=== PATIENT | female | born 2000 | race Asian ===

== ENCOUNTER → 2024-09-28 | Outpatient (CLI) | payer OTHER, SELFPAY ==
[2024-09-28 16:57] LABS: Glucose,1 Hour PP 50gm Dose 125 mg/dL (80-140)
== END | disposition home or self-care (01) ==
LOC: SLDO 15:29
PROVIDERS: Referring Provider Specialist; Visit Provider Specialist
DX: Z34.82 Encounter for supervision of other normal pregnancy, second trimester (principal)
CPT/HCPCS: 36415; 82950

== ENCOUNTER → 2024-10-26 | Outpatient (CLI) | payer OTHER, SELFPAY ==
[2024-10-26 16:35] LABS: Basophils # (Auto) 0.1 Thou/mm3 (0.0-0.2); Basophils % (Auto) 1 % (0-2.5); Eosinophils # (Auto) 0.2 Thou/mm3 (0.0-0.5); Eosinophils % (Auto) 2 % (0-10); Hematocrit 39.3 % (36.0-46.0); Hemoglobin 11.9 g/dL (12.0-16.0); Immature Granulocytes % (Auto) 1 % (0-0); Immature Granulocytes Auto 0.12 Thou/mm3 (0.00-0.00); Lymphocytes # (Auto) 1.6 Thou/mm3 (1.0-4.8); Lymphocytes % (Auto) 14 % (10-50); Mean Corpuscular HGB Conc 30.3 g/dl (31.0-37.0); Mean Corpuscular Hemoglobin 21.6 pg (25.0-35.0); Mean Corpuscular Volume 71 fL (80-100); Monocytes # (Auto) 0.9 Thou/mm3 (0.0-0.8); Monocytes % (Auto) 8 % (0-12); Neutrophils # (Auto) 8.5 Thou/mm3 (1.8-7.7); Neutrophils % (Auto) 75 % (37-80); Nucleated Red Blood Cell % 0 /100 WBC (0); Platelet Count 372 Thou/mm3 (140-440); RDW Standard Deviation 38.3 fL (36.4-46.3); Red Blood Count 5.51 Miln/mm3 (4.00-5.20); Syphilis Nonreactive (Nonreactive); White Blood Count 11.3 Thou/mm3 (3.6-11.0)
== END | disposition home or self-care (01) ==
LOC: SLDO 14:05
PROVIDERS: Referring Provider Specialist; Visit Provider Specialist
DX: O23.40 Unspecified infection of urinary tract in pregnancy, unspecified trimester (principal); Z3A.00 Weeks of gestation of pregnancy not specified
CPT/HCPCS: 36415; 85025; 86780; 87086

== ENCOUNTER → 2024-12-07 | Outpatient (CLI) | payer OTHER, SELFPAY ==
[2024-12-08 14:18] LABS: BVAG Candida Positive (Negative); Bacterial Vaginosis Markers Negative (Negative); Candida glabrata Negative (Negative); Candida krusei PCR Negative (Negative); Trichomonas Negative (Negative)
== END | disposition home or self-care (01) ==
LOC: SLDO 15:23
PROVIDERS: Referring Provider Specialist; Visit Provider Specialist
DX: Z34.83 Encounter for supervision of other normal pregnancy, third trimester (principal)
CPT/HCPCS: 81514

== ENCOUNTER 2025-01-03 19:57 | Inpatient (IN) | payer OTHER, SELFPAY ==
[2025-01-03] VITALS (8 sets, daily range): BP systolic 105–121; BP diastolic 59–79; PULSE 81–94; RESP 16–99; TEMP 37.2; BMI 36.0
[2025-01-03] MEDS: RINGERS LACTATED 1000 ML 1,000 ML 125 ML IV (20:35)
--- NOTE | 2025-01-03 20:48 | ESHP_ITS ---
RE: JOSE F LEONARDO : 2000 DATE OF ADMISSION: 01/03/2025 HISTORY OF PRESENT ILLNESS: This is a 24-year-old 2, para 0-0-1-0 with a due date of 12/29/2024 with intrauterine at 40 weeks and 5 days who presents to labor and delivery for induction of labor for postdates. The patient denies any leaking or bleeding. She reports normal movement. She has occasional contractions. Her Group B strep rectovaginal colonization swab was positive. She has had asthma, but no significant exacerbations during her . ALLERGIES: NO KNOWN DRUG ALLERGIES. MEDICATIONS: 1. multivitamin 1 tablet p.o. daily. 2. Albuterol metered dose inhaler 2 puffs q.6 hours p.r.n. shortness of breath, wheezing. PAST MEDICAL HISTORY: White coat hypertension, asthma. PAST SURGICAL HISTORY: D and C in 02/2024. OBSTETRIC HISTORY: In 02/2024, 8 weeks spontaneous AB with D and C. 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 Denies any alcohol, drug use or smoking. FAMILY HISTORY: Diabetes, hypertension, heart disease, stroke. REVIEW OF SYSTEMS: She denies any chest pain, palpitations, cough, fever, shortness of breath, or lower extremity pain. She denies any headache, change in vision, or right upper quadrant pain. PHYSICAL EXAMINATION: VITAL SIGNS: Blood pressure 121/68, heart rate 94, respirations 18, temperature 98.6. HEENT: Oropharynx and sclerae are clear. LUNGS: Clear to auscultation bilaterally. HEART: Regular rate and rhythm. ABDOMEN: Gravid, consistent with an estimated weight of 3750 grams. PELVIC: See RN notes. EXTREMITIES: Nontender. SKIN: No gross rashes or lesions. NEUROLOGIC: No focal deficit. ASSESSMENT AND PLAN: Intrauterine at 40 weeks and 5 days, induction of labor, anticipate spontaneous vaginal delivery. Informed consent was obtained. The patient was made aware of the risks, complications, alternatives, and benefits of operative vaginal delivery and delivery and agrees with these modes of delivery if indicated. DT: 20:18:41 TT: 20:47:00 Ref: [id number] - TID: [id number] MTDD
--- NOTE | 2025-01-03 20:55 | XR_ITS ---
Examination: age Limited Technique: Transvaginal sonographic images pelvis Exam date and time: January 04, 2020 0509 hrs. Indications: Unknown presentation and weight Findings: Viable intrauterine gestation cephalic presentation Estimated weight 3407.9 g Cardiac motion 150 BPM Estimated gestational age 38 weeks 2 days Impression: Viable intrauterine gestation cephalic presentation
[2025-01-03 21:36] LABS: Basophils # (Auto) 0.1 Thou/mm3 (0.0-0.2); Basophils % (Auto) 0 % (0-2.5); Eosinophils # (Auto) 0.1 Thou/mm3 (0.0-0.5); Eosinophils % (Auto) 1 % (0-10); Hematocrit 38.9 % (36.0-46.0); Hemoglobin 12.4 g/dL (12.0-16.0); Immature Granulocytes % (Auto) 1 % (0-0); Lymphocytes # (Auto) 1.7 Thou/mm3 (1.0-4.8); Lymphocytes % (Auto) 16 % (10-50); Mean Corpuscular HGB Conc 31.9 g/dl (31.0-37.0); Mean Corpuscular Hemoglobin 21.8 pg (25.0-35.0); Mean Corpuscular Volume 68 fL (80-100); Monocytes % (Auto) 9 % (0-12); Neutrophils # (Auto) 8.1 Thou/mm3 (1.8-7.7); Neutrophils % (Auto) 73 % (37-80); Nucleated Red Blood Cell % 0 /100 WBC (0); Platelet Count 351 Thou/mm3 (140-440); RDW Standard Deviation 36.1 fL (36.4-46.3); Red Blood Count 5.69 Miln/mm3 (4.00-5.20); White Blood Count 11.1 Thou/mm3 (3.6-11.0)
[2025-01-03 22:27] LABS: Syphilis Nonreactive (Nonreactive)
[2025-01-03] MEDS: DINOPROSTONE 10 MG VAG.SUPP VAGINAL (23:09)
[2025-01-04] VITALS (23 sets, daily range): BP systolic 97–123; BP diastolic 51–76; PULSE 67–93; RESP 16–18; TEMP 36.9–37.2
[2025-01-04] MEDS: RINGERS LACTATED 1000 ML 1,000 ML 125 ML IV ×2 (04:35→11:50)
--- NOTE | 2025-01-04 06:22 | PD.LDPN ---
Documentation for date of: 01/04/25 OB Labor Progress Note Pain Control Comments: None Pelvic Exam Dilation (cm): long Effacement (%): closed station: -3 Amniotic membrane status: Intact Contractions Contraction frequency: irregular Status Comments: Category 1 Assessment and Plan Comments: Cervidil cervical ripening on going due to be removed at 11:45
[2025-01-04] MEDS: MISOPROSTOL 50 mCg TABLET PO ×3 (12:47→20:56)
[2025-01-05] VITALS (183 sets, daily range): BP systolic 95–139; BP diastolic 53–93; PULSE 74–133; RESP 18; TEMP 36.7–38.3; O2SAT 70–100
[2025-01-05] MEDS: fentaNYL CIT INJ 50 mCg/ML AMP 2ML 100 MCG IV ×3 (00:26→05:27)
[2025-01-05] MEDS: MISOPROSTOL 50 mCg TABLET PO (01:12)
[2025-01-05] MEDS: RINGERS LACTATED 1000 ML 1,000 ML 999 ML IV ×2 (06:03→10:05)
--- NOTE | 2025-01-05 08:52 | PD.LDPN ---
Documentation for date of: 01/05/25 OB Labor Progress Note Pain Control Comments: Epidural Pelvic Exam Dilation (cm): 4 Effacement (%): 70 station: -1 Amniotic membrane status: Intact Contractions Contraction frequency: irregular Status status: Category l Assessment and Plan Comments: Declines to start Pitocin at this time Ampicillin for GBS prophylaxis Expectant Management
[2025-01-05] MEDS: Ampicillin Inj 2,000 MG in SODIUM CHLORIDE 0.9% (POP) 100 ML 100 MG IV (09:00)
[2025-01-05] MEDS: ACETAMINOPHEN IVPB 1,000 MG/100 ML VIAL 250 MG IV (10:18)
--- NOTE | 2025-01-05 10:31 | PD.LDPN ---
Documentation for date of: 01/05/25 OB Labor Progress Note Pain Control Comments: Epidural Pelvic Exam Dilation (cm): 6 Effacement (%): 90 station: -1 Amniotic membrane status: Ruptured Contractions Contraction frequency: q3m Status status: Category ll Assessment and Plan Comments: Chorioamnionitis Ampicillin and Gentamycin CBC, Type and Hold 2 u pRBCs, 2nd large bore IV. Reviewed diagnosis and plan with patient and she agrees with continued trial of labor in anticipation of .
[2025-01-05] MEDS: GENTAMICIN/NS 80 MG IVPB 80 MG in PRE-MIXED 1 BAG 50 MG IV (10:49)
[2025-01-05 12:10] LABS: Basophils % (Auto) 0 % (0-2.5); Eosinophils % (Auto) 0 % (0-10); Hematocrit 38.6 % (36.0-46.0); Hemoglobin 12.2 g/dL (12.0-16.0); Immature Granulocytes % (Auto) 1 % (0-0); Immature Granulocytes Auto 0.16 Thou/mm3 (0.00-0.00); Lymphocytes # (Auto) 0.7 Thou/mm3 (1.0-4.8); Lymphocytes % (Auto) 4 % (10-50); Mean Corpuscular HGB Conc 31.6 g/dl (31.0-37.0); Mean Corpuscular Hemoglobin 21.9 pg (25.0-35.0); Mean Corpuscular Volume 69 fL (80-100); Monocytes # (Auto) 0.8 Thou/mm3 (0.0-0.8); Monocytes % (Auto) 5 % (0-12); Neutrophils # (Auto) 16.5 Thou/mm3 (1.8-7.7); Neutrophils % (Auto) 90 % (37-80); Nucleated Red Blood Cell % 0 /100 WBC (0); Platelet Count 272 Thou/mm3 (140-440); RDW Standard Deviation 37.2 fL (36.4-46.3); Red Blood Count 5.56 Miln/mm3 (4.00-5.20); White Blood Count 18.2 Thou/mm3 (3.6-11.0)
[2025-01-05] MEDS: Ampicillin Inj 1,000 MG in SODIUM CHLORIDE 0.9% (Popper) 50 ML 50 MG IV (12:59)
[2025-01-05] MEDS: MINERAL OIL 30 ML UDC TOP (15:32)
[2025-01-05] MEDS: OXYTOCIN in NS 20 units 20 UNIT/1,000 ML BAG 125 UNIT IV (15:38)
[2025-01-05] MEDS: BENZO/LANO/ALOE (Dermoplast) 60 GM CAN 1 SPRAY TOP (15:53)
[2025-01-05] MEDS: IBUPROFEN TAB 400 MG TABLET 800 MG PO (16:08)
--- NOTE | 2025-01-05 16:24 | ESDS_ITS ---
DS: Providers Provider Date of admission: 01/03/25 19:57 Primary care physician: Alexander Peoples MD Admitting Provider: Maykel De Leon MD Attending Provider on Admission: Maykel De Leon MD Attending Provider on DC: Maykel De Leon MD Discharging Provider: Maykel De Leon MD DS: Diagnosis Problem List Completed Was Problem List Reviewed/Reconciled?: Yes Summary/Hosp Course Time Spent with Patient Time attestation: Total time spent providing and/or coordinating discharge services: Exam Vital Signs Temp Pulse Resp BP Pulse Ox 98.1 F 90 18 119/59 L 97 01/05/25 16:08 01/05/25 16:21 01/05/25 12:30 01/05/25 16:21 01/05/25 15:36 Discharge Plan Plan Patient Disposition: HOME (Self Care) Patient condition on transfer: Stable Prescriptions/Referrals Prescriptions/Med Rec: New ibuprofen 600 mg tablet 600 mg PO Q6H PRN (Reason: pain) Qty: 30 0RF amoxicillin-pot clavulanate 875-125 mg tablet 1 tab PO Q12H Qty: 10 0RF Continued albuterol sulfate 90 mcg/actuation HFA aerosol inhaler 1 inh inhalation PRN PRN (Reason: Sob) M-Indira Plus 27 mg iron- 1 mg tablet PO DAILY Referrals: Alexander Peoples MD [Primary Care Provider] - Patient/Caregiver Discharge Instructions Discharge Activity: activity as tolerated Other Discharge Activity Instructions:: Follow up office 6 weeks Print Language: Jamaican Stand Alone Forms: Mariela Award Info., Patient Portal Info Letter Discharge Order Discharge Orders: Discharge (Routine); Ordered 01/07/25 Ordered By: Maykel De Leon Planned Discharge Date 01/07/25
[2025-01-05] MEDS: Ampicillin Inj 2,000 MG in SODIUM CHLORIDE 0.9% (POP) 100 ML 200 MG IV (19:13)
--- NOTE | 2025-01-05 19:18 | OBDSUM_ITS ---
Data ([facility]) Data : 2 Para: 0 Term: 0 : 0 : 1 Delivery Data ([facility]) Labor Data ROM Date: 01/05/25 ROM Time: 09:00 Rupture Type: SROM Amniotic Fluid: Clear Delivery Data EDC: 12/30/24 EDC calculated by:: LMP/early US confirmation Labor Onset Stage 1 Date: 01/05/25 Labor Onset Stage 1 Time: 09:00 Labor Onset Stage 2 Date: 01/05/25 Labor Onset Stage 2 Time: 13:16 Delivery Date: 01/05/25 Delivery Time: 15:36 Gestational age (weeks): 40 Gestational age (days): 6 Placenta Delivery Date: 01/05/25 Placenta Delivery Time: 14:48 Delivered by: Maykel De Leon Delivery nurse: Kandy Medina Other staff at delivery: Nursery Nurse Other staff at delivery: [facility] Nurse Other staff at delivery: Diana Sosa Other staff at delivery: Christelle Jay Delivery Method Delivery: Vaginal Delivery Type: Spontaneous Presentation: Vertex Position: OA Anesthesia Type Primary Anesthesia: Epidural Placenta Placenta Delivery: Spontaneous Placenta Cultures Obtained: No Placenta Sent for Examination: No Cord Sample: Cord Blood Obtained Lacerations #1: Perineal: 2nd degree Perineal repair Sutures used for repair: 3.0 Chromic EBL Estimated blood loss (ml): 200 Umbilical Cord Nuchal Cord: x1 Loosely Additional Procedures None Complications Complications: None Data ([facility]) Data Infant Gender: Male Infant Weight Grams: 3160 1 Minute Total: 9 5 Minute Total: 9
[2025-01-05 23:06] LABS: Basophils # (Auto) 0.1 Thou/mm3 (0.0-0.2); Basophils % (Auto) 0 % (0-2.5); Eosinophils % (Auto) 0 % (0-10); Hemoglobin 10.5 g/dL (12.0-16.0); Immature Granulocytes % (Auto) 1 % (0-0); Immature Granulocytes Auto 0.22 Thou/mm3 (0.00-0.00); Lymphocytes # (Auto) 1.2 Thou/mm3 (1.0-4.8); Lymphocytes % (Auto) 4 % (10-50); Mean Corpuscular HGB Conc 31.8 g/dl (31.0-37.0); Mean Corpuscular Hemoglobin 22.2 pg (25.0-35.0); Mean Corpuscular Volume 70 fL (80-100); Monocytes # (Auto) 1.3 Thou/mm3 (0.0-0.8); Monocytes % (Auto) 5 % (0-12); Neutrophils # (Auto) 24.4 Thou/mm3 (1.8-7.7); Neutrophils % (Auto) 90 % (37-80); Nucleated Red Blood Cell % 0 /100 WBC (0); Platelet Count 272 Thou/mm3 (140-440); RDW Standard Deviation 36.9 fL (36.4-46.3); Red Blood Count 4.72 Miln/mm3 (4.00-5.20); White Blood Count 27.1 Thou/mm3 (3.6-11.0)
[2025-01-06] VITALS: BP 124/72; PULSE 97; RESP 17; TEMP 36.7; O2SAT 96
[2025-01-06] MEDS: Ampicillin Inj 2,000 MG in SODIUM CHLORIDE 0.9% (POP) 100 ML 200 MG IV ×4 (00:18→20:02)
[2025-01-06 04:00] VITALS: BP 105/69; PULSE 96; RESP 18; TEMP 37; O2SAT 97
[2025-01-06] MEDS: IBUPROFEN TAB 400 MG TABLET 800 MG PO ×2 (04:21→18:34)
[2025-01-06 06:42] LABS: Gentamicin, Random 0.5 mcg/mL (4.0-10.0)
[2025-01-06 08:00] VITALS: BP 99/64; PULSE 78; RESP 18; TEMP 36.8; O2SAT 97
--- NOTE | 2025-01-06 10:25 | ESPR_ITS ---
RE: JOSE F LEONARDO : 2000 DATE OF SERVICE: 01/06/2025 SUBJECTIVE: day #1, the patient denies any problem or complaint. She is voiding, ambulating, tolerating a regular diet, and passing flatus. She denies any excessive vaginal bleeding. She denies any dizziness or lightheadedness. She denies any chest pain, palpitations, shortness of breath, or lower extremity pain. OBJECTIVE: Vital Signs: Blood pressure 105/69 mmHg, heart rate 96, respirations 18, temperature 98.6, pulse oximetry is 97% on room air. Lungs: Clear to auscultation bilaterally. Heart: Regular rate and rhythm. Abdomen: Fundus is firm, nontender. Extremities: Nontender. LABORATORY DATA: Hemoglobin pre-delivery is 12.2, post-delivery is 10.5, white blood cell count on admission 11.1, currently 27,000. ASSESSMENT: day #1, status post spontaneous vaginal delivery, chorioamnionitis, PLAN: Continue ampicillin and gentamicin until discharge home tomorrow and then discharge home on Augmentin. I discussed with the patient the recommendations. All questions were answered. DT: 08:53:47 TT: 10:23:00 Ref: [id number] - TID: [id number] MTDEvy
[2025-01-06 11:12] VITALS: BP 110/72; PULSE 82; RESP 18; TEMP 36.7; O2SAT 98
[2025-01-06] MEDS: DOCUSATE SOD 100 MG CAPSULE PO ×2 (14:03→20:10)
[2025-01-06 16:54] VITALS: BP 114/72; PULSE 80; RESP 18; TEMP 36.5; O2SAT 97
[2025-01-06 19:30] VITALS: BP 113/76; PULSE 87; RESP 16; TEMP 36.7; O2SAT 97
[2025-01-06] MEDS: ACETAMINOPHEN 325 MG TABLET 650 MG PO (20:09)
[2025-01-07 00:30] VITALS: BP 110/73; PULSE 74; RESP 16; TEMP 36.7; O2SAT 97
[2025-01-07] MEDS: Ampicillin Inj 2,000 MG in SODIUM CHLORIDE 0.9% (POP) 100 ML 200 MG IV ×3 (01:49→14:27)
[2025-01-07 03:35] VITALS: BP 108/72; PULSE 73; RESP 16; TEMP 36.4; O2SAT 97
[2025-01-07 06:22] LABS: Basophils # (Auto) 0.1 Thou/mm3 (0.0-0.2); Basophils % (Auto) 0 % (0-2.5); Eosinophils # (Auto) 0.2 Thou/mm3 (0.0-0.5); Eosinophils % (Auto) 1 % (0-10); Hematocrit 31.8 % (36.0-46.0); Immature Granulocytes % (Auto) 0 % (0-0); Immature Granulocytes Auto 0.07 Thou/mm3 (0.00-0.00); Lymphocytes # (Auto) 2.5 Thou/mm3 (1.0-4.8); Lymphocytes % (Auto) 15 % (10-50); Mean Corpuscular HGB Conc 31.4 g/dl (31.0-37.0); Mean Corpuscular Hemoglobin 22.1 pg (25.0-35.0); Mean Corpuscular Volume 70 fL (80-100); Monocytes # (Auto) 1.2 Thou/mm3 (0.0-0.8); Monocytes % (Auto) 7 % (0-12); Neutrophils # (Auto) 12.4 Thou/mm3 (1.8-7.7); Neutrophils % (Auto) 76 % (37-80); Nucleated Red Blood Cell % 0 /100 WBC (0); Platelet Count 277 Thou/mm3 (140-440); Red Blood Count 4.53 Miln/mm3 (4.00-5.20); White Blood Count 16.5 Thou/mm3 (3.6-11.0)
[2025-01-07] MEDS: IBUPROFEN TAB 400 MG TABLET 800 MG PO (08:03)
[2025-01-07] MEDS: DOCUSATE SOD 100 MG CAPSULE PO (08:03)
[2025-01-07 08:34] VITALS: BP 109/71; PULSE 77; RESP 16; TEMP 36.7; O2SAT 97
--- NOTE | 2025-01-07 09:50 | ESPR_ITS ---
RE: JOSE F LEONARDO : 2000 DATE OF SERVICE: 01/07/2025 S: day #2, the patient denies any problems or complaints. She is voiding. She is ambulating. She is tolerating diet. She is passing flatus. She denies any excessive vaginal bleeding. She denies any dizziness or lightheadedness. She denies any chest pain, palpitations, shortness of breath, or lower extremity pain. She remains afebrile for almost 48 hours. O: Lungs: Clear to auscultation bilaterally. Heart: Regular rate and rhythm. Abdomen: Fundus is firm, nontender. Extremities: Nontender. A: day #2, status post spontaneous vaginal delivery, chorioamnionitis with white count improving, and stable H and H. P: Continue ampicillin and gentamicin until discharge home later today. Discharge home on Augmentin for 5 days. Discharge instructions given. Follow up in the office in 6 weeks. DT: 07:34:48 TT: 09:49:00 Ref: [id number] - TID: [id number]
[2025-01-07 12:00] VITALS: BP 117/73; PULSE 71; RESP 17; TEMP 36.9; O2SAT 97
[2025-01-07] MEDS: ACETAMINOPHEN 325 MG TABLET 650 MG PO (13:05)
[2025-01-07 13:06] VITALS: BP 108/70; PULSE 78
[2025-01-07] MEDS: hydroCHLOROthiazide 12.5 MG CAPSULE 25 MG PO (13:06)
== END 2025-01-07 18:44 | disposition home or self-care (01) | DRG 805 ==
LOC: S4SX 01-05 16:23 → S4NX 01-05 19:01
PROVIDERS: Admitting Provider Specialist; PCP Family Medicine; Visit Provider Specialist
DX: O48.0 Post-term pregnancy (principal); O41.1230 Chorioamnionitis, third trimester, not applicable or unspecified; Z37.0 Single live birth; Z3A.40 40 weeks gestation of pregnancy; O69.81X0 Labor and delivery complicated by cord around neck, without compression, not applicable or unspecified; O99.824 Streptococcus B carrier state complicating childbirth; O99.52 Diseases of the respiratory system complicating childbirth; J45.909 Unspecified asthma, uncomplicated; O70.1 Second degree perineal laceration during delivery; Z79.51 Long term (current) use of inhaled steroids
CPT/HCPCS: 36415; 59409; 76815; 80170; 85025; 86780; 86850; 86900; 86901; 86923; 94762; J0131; J0290; J1580; J2590; J2795; J3010; J7050; J7120; A9270

== ENCOUNTER 2025-01-09 10:09 | Outpatient (AMBR) | payer OTHER, SELFPAY ==
--- NOTE | 2025-01-09 16:15 | LAC.VISIT ---
Assessment LAC Breast Assessment Breast Assessment Bilateral: Breast Assessment Comment: moms edema has gone down dramatically, her nipples are now more pliable and nipple able to distend. at this time mom has decided to continue with exclusively pumping and giving baby bottle. Alternative Milk Expression Alternative Milk Expression Alternative Method Used: Yes Method Used: Pumping Alternative Method Comment: mom was using momcozy but explained that she needed to use a hospital grade pump, she does have a Spectra at home and will use this pump. Also stressed the importance of pumping every 2-3 hours including at night to keep her milk supply. at this time mom has only pumped one time since being home as she was supplementing with formula as well. Alternative Method Produced Milk / Colostrum: Yes Production Amount: 10 Production ounces or mls: mls Pump Used: Electric Pumping Frequency Per Day: 1 Pumping Frequency Comment: pump every 2-3 times at least 8 times in a 24 hours time period LAC Assessment Breast Feeding Assessment Date of : 01/05/25 Current Age of baby: 4 (days) Weight: 2789.593 g Current weight of baby: 3356.584 g Color of Stools: yellow and seedy Breast Feeding Ability: Fair LAC Intervention Interventions Tools: Nipple Shield and Pump Other Tools: SNS, mom used first few days after delivery, at this time she has decided to exclusively pump and give with bottle Discharge Follow Up Appointment Date and Time: as needed Other Referral Made: No OP DC Assessment Discharge Follow Up Appointment Date and Time: as needed Other Referral Made: No Visit Complete?: Yes
== END 2025-01-16 23:59 | disposition home or self-care (01) ==
LOC: HODLAC 10:09
DX: Z39.1 Encounter for care and examination of lactating mother (principal)

== ENCOUNTER 2025-01-23 15:07 | Outpatient (AMBR) | payer OTHER, SELFPAY ==
--- NOTE | 2025-01-23 16:15 | LAC.VISIT ---
Assessment LAC Breast Assessment Breast Assessment Right: Breast Assessment Comment: Mom has extremely large breast and nipples, stating that pumping has seen a decrease in her milk supply. Alternative Milk Expression Alternative Milk Expression Alternative Method Used: Yes Method Used: Pumping Alternative Method Comment: mom is using a Spectra pump with a 24 mm flange. upon inspection of mom pumping seeing that her nipple is being impeded had her go all the way up to a 32 mm flange. allowing the nipple to freely go in and out of the flange. mom saw that she was actually getting more milk out of at this point. Alternative Method Produced Milk / Colostrum: Yes Production Amount: 110 Production ounces or mls: mls Pump Used: Electric Pumping Frequency Per Day: 7 Pumping Frequency Comment: explained that during growth spurts baby will cluster feed to increase milk supply so that mom's who are exclusively pumping need to increase their pumping times a day to allow for this adjustment in milk increase. LAC Intervention Interventions Tools: Pump Other Tools: mom is using incorrect flange size on pump which is not emtying her breasts. thus not getting the amount she needs for babys growth spurt. gave mom bigger flanges and incouraged her to use to increase her pumping cycle to increase milk supply. mom understood Discharge Follow Up Appointment Date and Time: as needed OP DC Assessment Discharge Follow Up Appointment Date and Time: as needed Visit Complete?: Yes
--- NOTE | 2025-02-18 15:54 | LACNOTE_ITS ---
Assessment Alternative Milk Expression Alternative Milk Expression Alternative Method Used: Yes Method Used: Pumping Alternative Method Comment: mom is exclusively pumping and she is struggling with her mental health. she is physically tired as she is pumping every 2 hours, pumping sessions last anywhere from 20 minutes to 1 hour long, giving mom very little time in between to feed baby and start pumping all over again. 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 Gave mom some handouts on paced feeding since baby is doing bottles. With weight and age calculations baby is over eating at this point. Parents are give 4 oz at a feed but baby should only be getting 2.7 ounce. Alternative Method Produced Milk / Colostrum: Yes Production Amount: 4 Production ounces or mls: ounces Pump Used: Electric Pumping Frequency Comment: encouraged mom to continue pumping but to do every 3 hours to give herself some time off in between pumping sessions. LAC Assessment Breast Feeding Assessment Date of : 02/05/25 Current Age of baby: 6 (weeks) Current weight of baby: 3719.457 g [place] Complications Comment: baby is getting breastmilk in a bottle, bottles are being fed by mom, dad and a myriad of care givers. mom states that baby downs a bottle of 4 ounces in less than 5 minutes. hand outs on paced feeding so that she can give to family meembers. also encouraged mom to look for feeding cues, gave hand out on this as well. mom states she is waking baby every 2 hours to feed regardless of feeding cues. explained that baby can sleep until feeding cues are given. LAC Intervention Interventions Tools: Pump Other Tools: mom using a size 30 mm pump flange Techniques Discussed: Pumping Discharge Follow Up Appointment Date and Time: as needed LAC Education Education : Education Topics: Hunger Cues, Infant Stomach Capacity, Milk Production and Signs of Adequate Intake OP DC Assessment Discharge Follow Up Appointment Date and Time: as needed Visit Complete?: Yes
== END 2025-02-16 23:59 | disposition home or self-care (01) ==
DX: Z39.1 Encounter for care and examination of lactating mother (principal)

== ENCOUNTER 2025-05-23 01:35 | Emergency (ER) | payer OTHER, SELFPAY ==
[2025-05-23 01:36] VITALS: BP 91/52; PULSE 126; RESP 20; TEMP 37.3; O2SAT 96
--- NOTE | 2025-05-23 01:57 | EKG_ITS ---
[facility] Test Date: 2025-05-23 Pat Name: JOSE F LEONARDO Department: Room: - Gender: Female Box Office Attendant: : 2000 Requested By: Prashanth Cabrera Order Number: [id number] Reading MD: Prashanth Cabrera Measurements Intervals [place] Rate: 95 P: 57 AK: 160 QRS: 62 QRSD: 91 T: 42 QT: 335 QTc: 421 Interpretive Statements SINUS RHYTHM LOW QRS VOLTAGE IN PRECORDIAL LEADS [QRS DEFLECTION < 1.0 mV IN CHEST LEADS] POSSIBLE ANTERIOR MYOCARDIAL INFARCTION , OF INDETERMINATE AGE [30 ms Q WAVE IN V3/V4, OR R < 0.2 mV IN V4] No previous ECG available for comparison /[id number]/[id number].pdf
--- NOTE | 2025-05-23 01:57 | XR_ITS ---
Examination: PA chest single view TECHNIQUE: Upright PA chest single view Date and time: May 23, 2025 0209 hours INDICATIONS: Chest pain today. FINDINGS: Normal heart size. Lungs are clear. The osseous structures are intact IMPRESSION: No active disease.
--- NOTE | 2025-05-23 01:57 | XR_ITS ---
Examination: Breast ultrasound, unilateral, left Date and time of exam: May 23, 2025 0255 hours INDICATIONS: Left breast pain beginning 11:00 PM last night Technique: Real-time ramirez scale ultrasonographic imaging performed left breast including all 4 quadrants as well as nipple retroareolar and axillary region. Findings: No cystic or solid mass IMPRESSION: Negative study
[2025-05-23] MEDS: SODIUM CHLORIDE 0.9% 1000 ML 1,000 ML 999 ML IV (02:44)
[2025-05-23 03:20] LABS: Alanine Aminotransferase 13 U/L (10-49); Albumin, Serum 4.5 gm/dL (3.5-5.0); Albumin/Globulin Ratio 1.7 (1.2-2.2); Alkaline Phosphatase 88 U/L (46-116); Anion Gap 11 (7-16); BUN/Creatinine Ratio 20 Ratio (12-20); Bilirubin,Total 0.4 mg/dL (0.3-1.2); Blood Urea Nitrogen 18 mg/dL (9-23); Calcium 9.9 mg/dL (8.3-10.6); Calcium (Corrected) 9.9 mg/dL (8.5-10.1); Carbon Dioxide 23.8 mMol/L (20.0-31.0); Chloride 108 mMol/L (98-107); Creatinine (Component) 0.9 mg/dL (0.6-1.3); Globulin 2.7 gm/dL (2.3-3.5); Glucose 130 mg/dL (74-106); Magnesium 1.5 mg/dL (1.6-2.6); Osmolality,Calculated 288 (275-295); Potassium 3.5 mMol/L (3.4-5.1); Sodium 143 mMol/L (136-145); Total Protein 7.2 gm/dL (5.7-8.2); Troponin I < 0.002 ng/mL (0.0-0.045); eGFR > 60 See Note
[2025-05-23 04:29] LABS: Lactate (Lactic Acid) 1.4 mMol/L (0.4-2.0)
--- NOTE | 2025-05-23 04:38 | PC.NURSE ---
WE HAD DOWN TIME FROM [id number].
[2025-05-23 04:41] LABS: Basophils # (Auto) 0.0 Thou/mm3 (0.0-0.2); Basophils % (Auto) 0 % (0-2.5); Eosinophils # (Auto) 0.1 Thou/mm3 (0.0-0.5); Eosinophils % (Auto) 1 % (0-10); Hematocrit 40.7 % (36.0-46.0); Hemoglobin 12.6 g/dL (12.0-16.0); Immature Granulocytes Auto 0.04 Thou/mm3 (0.00-0.00); Lymphocytes # (Auto) 0.6 Thou/mm3 (1.0-4.8); Lymphocytes % (Auto) 4 % (10-50); Mean Corpuscular HGB Conc 31.0 g/dl (31.0-37.0); Mean Corpuscular Hemoglobin 20.7 pg (25.0-35.0); Mean Corpuscular Volume 67 fL (80-100); Monocytes # (Auto) 0.5 Thou/mm3 (0.0-0.8); Monocytes % (Auto) 4 % (0-12); Neutrophils # (Auto) 11.6 Thou/mm3 (1.8-7.7); Neutrophils % (Auto) 90 % (37-80); Nucleated Red Blood Cell # 0.00 Thou/mm3 (0.00-0.00); Nucleated Red Blood Cell % 0 /100 WBC (0); Platelet Count 337 Thou/mm3 (140-440); RDW Standard Deviation 34.3 fL (36.4-46.3); Red Blood Count 6.10 Miln/mm3 (4.00-5.20); White Blood Count 12.8 Thou/mm3 (3.6-11.0)
[2025-05-23 04:44] LABS: Path Review Blood Smear Sent to Pathologist
[2025-05-23 04:47] VITALS: BP 97/61; PULSE 99; RESP 17; TEMP 37.3; O2SAT 96
[2025-05-23 04:50] VITALS: BP 98/62; PULSE 101
[2025-05-23 05:00] VITALS: BP 107/85; RESP 16; TEMP 37; O2SAT 99
[2025-05-23 05:05] LABS: Aspartate Amino Transferase 24 U/L (0-34); Procalcitonin 0.23 ng/ml (0.0-0.49)
[2025-05-23 05:10] LABS: D-Dimer 289 ng/mL (<600)
[2025-05-23 05:17] LABS: Collection Type, Urine Clean Catch
[2025-05-23 05:31] LABS: Bilirubin,Urine Negative (Negative); Blood,Urine Trace (Negative); Clarity,Urine Clear (Clear/Hazy); Color,Urine Lt-Yellow (Lt Yel-Yel); Culture Indicated,Urine Not Indicated; Glucose, Urine Negative (Negative); Ketones,Urine Negative (Negative); Leukocyte Esterase,Urine Negative (Negative); Nitrite,Urine Negative (Negative); PH,Urine 6.0 (5.0-7.0); Protein,Urine Negative (Neg - Trace); RBC,Urine 3 /hpf (0-3); Specific Gravity,Urine 1.031 (1.001-1.035); Squamous Epithelial Cell,Urine < 1 /hpf (0-5); Urobilinogen,Urine Negative mg/dL (0.0-1.0); WBC,Urine 1 /hpf (0-5)
[2025-05-23 05:33] LABS: HCG Qualitative,Urine Negative
[2025-05-23 05:37] LABS: Amphetamine/Methamp Scrn,U Negative (Negative); Barbiturate Screen,Urine Negative (Negative); Benzodiazepines Screen,Urine Negative (Negative); Benzoylecgonine Screen, Ur Negative (Negative); Fentanyl Screen,Urine Negative (Negative); Opiate Screen,Urine Negative (Negative); THC Screen,Urine Negative (Negative)
[2025-05-23] MEDS: Magnesium Sulfate 2 GM Ivpb 2 GM/50 ML BAG IV (05:38)
[2025-05-23] MEDS: RINGERS LACTATED 1000 ML 1,000 ML 999 ML IV (05:38)
[2025-05-23] MEDS: cefTRIAXone/D5w 1gm IV premix 1 GM/50 ML BAG IV (05:41)
--- NOTE | 2025-05-23 05:42 | PD.EDCHEST ---
ED Chest Pain RME/HPI General Chief Complaint: Chest Pain Stated Complaint: BREAST PAIN, BREAST FEEDING Time Seen by Provider: 05/23/25 01:57 Arrival date/time: 05/23/25 01:35 25F with history of asthma presents to ED with several hours of sudden L breast pain, N/V, and fevers/chills. Patient gave about 5 months ago and is . Patient denies CP, URI symptoms and anxiety. Limitations: no limitations Related Data Home Medications ?Medication ?Instructions ?Recorded ?Confirmed albuterol sulfate 90 mcg/actuation 1 inh inhalation PRN PRN Sob 01/03/25 01/03/25 aerosol inhaler vitamins with calcium tab PO DAILY 01/03/25 no.72-iron 27 mg-folic acid 1 mg tablet (M- Plus) Previous Rx's ?Medication ?Instructions ?Recorded ibuprofen 600 mg tablet 600 mg PO Q6H PRN pain #30 tabs 01/05/25 amoxicillin 875 mg-potassium 1 tab PO Q12H endometritis #10 tabs 01/06/25 clavulanate 125 mg tablet hydrochlorothiazide 25 mg tablet 25 mg PO QDAY PRN lower leg 01/07/25 swelling #7 tabs cephalexin 500 mg tablet 500 mg PO QID 10 days #40 tabs 05/23/25 ibuprofen 800 mg tablet 800 mg PO TID PRN pain #30 tabs 05/23/25 Allergies Allergy/AdvReac Type Severity Reaction Status Date / Time No Known Allergies Allergy Verified 01/03/25 20:20 Review of Systems Review of Systems Systems Reviewed: All systems reviewed, normal except as documented Constitutional Constitutional: Reports system reviewed and no additional complaints, except as documented, Reports as per HPI, Reports chills, Reports fever(s) and Denies headache(s) ENT Ears, Nose, Mouth, and Throat: Denies disequilibrium and Denies headache(s) Cardiovascular Cardiovascular: Reports system reviewed and no additional complaints, except as documented, Denies chest pain and Denies dyspnea Respiratory Respiratory: Reports system reviewed and no additional complaints, except as documented, Denies cough and Denies dyspnea Gastrointestinal Gastrointestinal: Reports system reviewed and no additional complaints, except as documented, Reports as per HPI, Denies abdominal pain, Reports nausea and Reports vomiting Integumentary/Breasts Skin/Breast: Reports as per HPI and Reports breast pain Neurologic Neurologic: Reports system reviewed and no additional complaints, except as documented, Denies confusion, Denies disequilibrium and Denies headache(s) Psychiatric Psychiatric: Denies confusion Past Medical History Past Medical History NEUROLOGIC: Negative Neurological Disorders or Seizures CARDIAC: Negative Cardiac Disorders or Congestive Heart Failure RESPIRATORY: Positive Asthma (occasional use of inhaler); Negative Chronic Obstructive Pulmonary Disease (COPD) GASTROINTESTINAL: Negative Gastrointestinal Disorders or Hepatitis GENITOURINARY: Negative Genitourinary Disorders or Renal Disease MUSCULOSKELETAL: Negative Musculoskeletal Disorders ENDOCRINE: Negative Endocrine Disorders, Diabetes Mellitus Type 1 or Diabetes Mellitus Type 2 HEMATOLOGIC: Negative Blood Disorders OTHER HISTORY: Negative Hospitalization, Autoimmune Disease, Down Syndrome, Developmental Delay, Shingles, Falls, Blood Transfusions, Blood Transfusion Reaction, Anesthesia Reactions, Organ Transplant, Chemotherapy, Radiation Therapy, Hyperbaric Therapy, MRSA, VRSA, Vancomycin-Resistant Enterococci, Human Immunodeficiency Virus (HIV), Chicken Pox, Measles, Mumps, Rubella (Belgian Measles), Pertussis, Clostridium Difficile or Cancer Family History FAMILY HISTORY: Positive Family Cardiac Disorders (mother-HTN, grandmother-stroke) and Family Surgery (mother-bilateral knee, hip); Negative Family Psychiatric Problems, Family Respiratory Disorders, Family Gastrointestinal Problems, Family Cancer or Family Anesthesia Reaction Surgical History SURGICAL: Negative Organ Transplant Social History SMOKING STATUS: Never smoker ED Exam General Limitations: Present no limitations General appearance: Present alert and in no apparent distress Head Head exam: Present atraumatic Eye Eye exam: Present normal appearance, PERRL and EOMI ENT ENT exam: Present normal exam, normal oropharynx and mucous membranes moist Neck Neck exam: Present normal inspection, full ROM and trachea midline Chest Chest inspection: Present symmetric chest wall rise Expanded Chest Exam Breast: left: swelling Respiratory Respiratory exam: Present normal lung sounds bilaterally Cardiovascular Cardiovascular exam: Present regular rate, normal rhythm and normal heart sounds Abdominal Exam Abdominal exam: Present soft and normal bowel sounds Extremities Exam Extremities exam: Present normal inspection and full ROM Back Exam Back exam: Present normal inspection and full ROM Neurological Exam Neurological exam: Present alert, oriented X3 and CN II-XII intact Psychiatric Psychiatric exam: Present normal affect and normal mood Skin Skin exam: Present warm, dry, intact and normal color Course Quality Measures none Orders Category Date Time Status Healthcare Manager Q4H START 00 Care 05/23/25 04:53 Completed EKG (ED ONLY) *Do not use* NOW Care 05/23/25 01:57 Completed Insert IV NOW Care 05/23/25 01:57 Completed EKG (ED Only) Stat Exams 05/23/25 01:57 Draft US breast LT complete Stat Exams 05/23/25 01:57 Completed XR chest 1V portable Stat Exams 05/23/25 01:57 Completed CBC Stat Lab 05/23/25 02:30 Completed Comprehensive Metabolic Panel Stat Lab 05/23/25 02:30 Completed D-Dimer Stat Lab 05/23/25 02:30 Completed Drug Screen,Urine Stat Lab 05/23/25 05:08 Completed HCG Qualitative,Urine Stat Lab 05/23/25 05:08 Completed Lactate (Lactic Acid) Stat Lab 05/23/25 02:30 Completed Magnesium Stat Lab 05/23/25 02:30 Completed Path Review Blood Smear Stat Lab 05/23/25 02:30 Completed Procalcitonin Stat Lab 05/23/25 02:30 Completed Troponin I Stat Lab 05/23/25 02:30 Completed Troponin I Stat Lab 05/23/25 05:36 Completed Urinalysis, C/S if Indicated Stat Lab 05/23/25 05:08 Completed Magnesium Sulfate 2 GM Ivpb [Magnesium Sulfate Ivpb] Med 05/23/25 05:11 Discontinued 2 gm in 50 ml IV X1 Magnesium Sulfate 2 GM Ivpb [Magnesium Sulfate Ivpb] 50 Med 05/23/25 05:28 Discontinued ml IV .STK-MED Ringers Lactated 1000 ml [Lactated Ringers] 1,000 ml Med 05/23/25 04:53 Discontinued IV 999 mls/hr Sodium Chloride 0.9% 1000 ml [Ns] 1,000 ml Med 05/23/25 01:57 Discontinued IV 999 mls/hr cefTRIAXone/D5w 1gm IV premix [Rocephin/D5w 1gm IV Med 05/23/25 05:28 Discontinued premix] 1 gm in 50 ml IV .STK-MED cefTRIAXone/D5w 1gm IV premix [Rocephin/D5w 1gm IV Med 05/23/25 04:53 Discontinued premix] 1 gm in 50 ml IV X1 Vital Signs Vital signs: Vital Signs Temperature 99.1 F 05/23/25 01:36 Pulse Rate 126 H 05/23/25 01:36 Respiratory Rate 20 05/23/25 01:36 Blood Pressure 91/52 L 05/23/25 01:36 Pulse Oximetry (%) 96 05/23/25 01:36 Oxygen Delivery Method Room Air 05/23/25 01:36 O2 at 96% on RA and WNLs Chest Pain MDM Narrative MDM Narrative:: 25F with history of asthma presents to ED with several hours of sudden L breast pain, N/V, and fevers/chills. Patient gave about 5 months ago and is . Patient denies CP, URI symptoms and anxiety. Physical exam with attractions associate Kimmie PETERS reveals no obvious swelling or redness of L breast. There is some tenderness. Clear lungs. Normal WOB. Patient is afebrile, alert, but anxious. BP is a bit low. EKG is NSR with non-specific ST-T wave changes. Initial trop normal. Normal D-dimer. Mild leukocytosis. CMP unremarkable. Procal/lactate normal. Mag mildly low. CXR reveals... Upon reassessment, patient is no longer nauseous, but BP remains somewhat low. Care signed out to Yayo DEJESUS pending repeat trop and dispo. Eventually, patient was discharged. Second trop was normal. Patient data External records reviewed:: [facility] previous records Clinical information provided by:: patient Social determinants that could affect healthcare access:: none Patient has the following chronic illnesses:: asthma How is presenting disease/condition affected by chronic disease/condition?: uneffected by Evaluation data The following diagnostics were reviewed and interpreted by me:: lab results, radiology exam(s) and EKG tracing(s) Lab and/or radiology exams considered but not ordered:: ordered Interpretation Summary: above Medications / Prescriptions Medications or Prescriptions considered but not ordered:: ordered Medication administrations:: Medication Administration History Discontinued Medications Sodium Chloride (Ns) 1,000 mls @ 999 mls/hr IV .Q1H1M ONE Stop: 05/23/25 02:57 Last Infusion: 05/23/25 04:49 Dose: Infused Documented By: Admin: 05/23/25 02:44 Dose: 999 mls/hr Documented By: CVL Lactated Ringer's (Lactated Ringers) 1,000 mls @ 999 mls/hr IV .Q1H1M ONE Stop: 05/23/25 05:53 Last Infusion: 05/23/25 07:06 Dose: Infused Documented By: Admin: 05/23/25 05:38 Dose: 999 mls/hr Documented By: DT Ceftriaxone Sodium/Dextrose (Rocephin/D5w 1gm Iv Premix) 1 gm in 50 mls @ 100 mls/hr IV X1 ONE Stop: 05/23/25 05:22 Last Infusion: 05/23/25 06:56 Dose: Infused Documented By: Admin: 05/23/25 05:41 Dose: 100 mls/hr Documented By: DT Magnesium Sulfate (Magnesium Sulfate Ivpb) 2 gm in 50 mls @ 25 mls/hr IV X1 ONE Stop: 05/23/25 07:10 Last Admin: 05/23/25 05:38 Dose: 25 mls/hr Documented By: DT Magnesium Sulfate (Magnesium Sulfate Ivpb) Confirm Administered Dose 50 mls @ ud IV .STK-MED ONE Stop: 05/23/25 05:29 Last Admin: 05/23/25 05:40 Dose: Not Given Documented By: DT Non-Admin Reason: Duplicate Medication on eMAR Ceftriaxone Sodium/Dextrose (Rocephin/D5w 1gm Iv Premix) Confirm Administered Dose 1 gm in 50 mls @ ud IV .STK-MED ONE Stop: 05/23/25 05:29 Last Admin: 05/23/25 05:40 Dose: Not Given Documented By: DT Non-Admin Reason: Duplicate Medication on eMAR above Consultations Consultation(s) initiated? (list below): No Diagnosis Chest Pain Differential Diagnosis: fracture of rib, pneumothorax, stable angina, unstable angina pectoris, atypical chest pain, st elevation myocardial infarction, costochondritis, chest pain, biliary colic and other (mastitis, PE) Most likely diagnosis given after review of the tests above:: mastitis Admission Indicated Admission indicated?: not indicated Admission Request Was there a request for admission?: No Disposition Plan Disposition Plan: Discharge Discharge Attestation Discharge Attestation: The patient and all family members were given an opportunity to ask questions and understood the discharge instructions. Discharge instructions specifically effects, indications for sooner follow up or return to the emergency department, and the expected course of current diagnosis. Patient condition: Stable Discharge Plan Plan Patient Disposition: HOME (Self Care) Discharge Disposition comment: Stable Prescriptions/Referrals Prescriptions/Med Rec: New ibuprofen 800 mg tablet 800 mg PO TID PRN (Reason: pain) Qty: 30 0RF cephalexin 500 mg tablet 500 mg PO QID 10 Days Qty: 40 0RF No Action albuterol sulfate 90 mcg/actuation HFA aerosol inhaler 1 inh inhalation PRN PRN (Reason: Sob) M-Indira Plus 27 mg iron- 1 mg tablet PO DAILY ibuprofen 600 mg tablet 600 mg PO Q6H PRN (Reason: pain) Qty: 30 0RF amoxicillin-pot clavulanate 875-125 mg tablet 1 tab PO Q12H Qty: 10 0RF hydrochlorothiazide 25 mg tablet 25 mg PO QDAY PRN (Reason: lower leg swelling) Qty: 7 0RF Referrals: Maykel De Leon MD [Physician, RECREATIONAL COUNSELOR] - 05/24/25 1:00 pm Problem List Clinical Impression: Acute mastitis of left breast Patient/Caregiver Discharge Instructions Education Materials: ED Mastitis Additional Instructions: Please follow-up with Dr De Leon tomorrow at 1 PM for worsening symptoms or concerns return immediately Please let the office staff know that I spoke with Dr De Leon who states he can see you as a walk-in at 1 PM Print Language: Peruvian Stand Alone Forms: Mariela Award Info., Work/School Release, Patient Portal Info Letter PA/SLICING MACHINE OPERATOR Supervising Physician PA/SLICING MACHINE OPERATOR Supervising Physician: Dr. paige
[2025-05-23 06:00] VITALS: BP 108/68; RESP 16; TEMP 37; O2SAT 99
[2025-05-23 06:14] LABS: Troponin I < 0.002 ng/mL (0.0-0.045)
[2025-05-23 07:54] VITALS: BP 120/73; PULSE 101; RESP 16; TEMP 36.9; O2SAT 99
--- NOTE | 2025-05-23 07:54 | PD.EDADDENDU ---
Emergency Room Addendum Addendum Narrative: At the time of my evaluation of the patient patient does not appear ill or toxic in no acute distress patient is hemodynamically stable blood pressure within normal limits 118/73 heart rate 95 I reviewed the patient's lab work patient has 2 negative troponins Initially patient's EKG was quite tachycardic repeat EKG completed EKG 0 6:39 AM sinus rhythm [address] elevation Patient reports no chest pain no shortness of breath no headache dizziness or weakness reports he feels better Patient be discharged home at this time Sedation: 07:[address] De Leon states he will see the patient as office tomorrow at 1 PM Patient discharged home on Keflex 500 mg 4 times daily for 10 days I encouraged patient to return for any worsening symptoms
== END 2025-05-23 08:10 | disposition home or self-care (01) ==
PROVIDERS: Physician Assistant; Emergency Provider Emergency Medicine; PCP Family Medicine
DX: N61.0 Mastitis without abscess (principal)
CPT/HCPCS: 36415; 71045; 76641; 80053; 80307; 81001; 81025; 83605; 83735; 84145; 84484; 85025; 85379; 93005; 96361; 96365; 99284; J0696; J3475; J7030; J7120